=== PATIENT | male | born 1990 | race Caucasian/White ===

== ENCOUNTER 2022-11-29 13:47 | Emergency (ER) | payer OTHER ==
[~2022-11-29] VITALS: Ht 170.2 cm; Wt 88.5 kg
[2022-11-29] MEDS ORDERED: FLON27.5 NARES (16:11)
[2022-11-29] MEDS ORDERED: AMOX875T2 PO (16:11)
[2022-11-29 16:33] VITALS: BP 126/76
[2022-11-29 16:53] LABS: RSV AMPLIFICATION NEGATIVE (NEGATIVE)
== END 2022-11-29 16:34 | disposition home or self-care (01) ==
LOC: M ED 13:47
DX: H66.91 Otitis media, unspecified, right ear (principal); Z88.5 Allergy status to narcotic agent; Z88.6 Allergy status to analgesic agent

== ENCOUNTER 2022-12-17 22:26 | Emergency (ER) | payer OTHER ==
[~2022-12-17] VITALS: Ht 167.6 cm; Wt 87.0 kg
[~2022-12-17 22:26] MED LIST: AMOX875T2 PO; FLON27.5 NARES
[2022-12-17] MEDS ORDERED: LORA-930 (22:38)
[2022-12-18 00:33] LABS: LIPASE 32 U/L (12-53)
[2022-12-18 00:35] LABS: ALBUMIN 3.9 G/DL (3.2-5.2); ALKALINE PHOSPHATASE 136 U/L (46-116); ALT/SGPT 171 U/L (7.0-40); AST/SGOT 47 U/L (<34); BILIRUBIN,DIRECT 0.2 MG/DL (<0.4); BILIRUBIN,TOTAL 0.4 MG/DL (0.3-1.2); BLOOD UREA NITROGEN 13 MG/DL (9-23); CALCIUM LEVEL 8.6 MG/DL (8.5-10.1); CARBON DIOXIDE LEVEL 29 MMOL/L (20-31); CHLORIDE LEVEL 106 MMOL/L (98-107); CREATININE FOR GFR 1.03 MG/DL (0.70-1.30); GLOMERULAR FILTRATION RATE > 60.0 (>60); GLUCOSE, FASTING 92 MG/DL (60-100); POTASSIUM SERUM 4.3 MMOL/L (3.5-5.1); SODIUM LEVEL 139 MMOL/L (136-145); TOTAL PROTEIN 6.5 G/DL (5.7-8.2)
[2022-12-18 00:45] LABS: BASO % 0.3 % (0.0-1.0); EOS # 0.1 10^3/uL (0.0-0.5); EOS % 1.1 % (0.0-3.0); HEMATOCRIT 41.9 % (42.0-52.0); HEMOGLOBIN 14.2 g/dl (13.5-17.5); LYMPH # 2.1 10^3/uL (1.5-5.0); LYMPH % 31.9 % (24.0-44.0); MEAN CORPUSCULAR HEMOGLOBIN 29.5 pg (27.0-33.0); MEAN CORPUSCULAR HGB CONC 33.9 g/dl (32.0-36.5); MEAN CORPUSCULAR VOLUME 86.9 fl (80.0-96.0); MONO # 0.4 10^3/uL (0.0-0.8); MONO % 6.5 % (2.0-8.0); PLATELET COUNT, AUTOMATED 202 10^3/uL (150-450); RED BLOOD COUNT 4.82 10^6/uL (4.30-6.10); WHITE BLOOD COUNT 6.6 10^3/uL (4.0-10.0)
[2022-12-18] MEDS ORDERED: ISOVUE-370 76% 100ML VIAL As Ordered ONE (00:56)
[2022-12-18 03:04] VITALS: BP 104/55
== END 2022-12-18 03:21 | disposition home or self-care (01) ==
LOC: M ED 22:26
DX: R10.9 Unspecified abdominal pain (principal); R94.5 Abnormal results of liver function studies; Z88.5 Allergy status to narcotic agent; Z88.6 Allergy status to analgesic agent
CPT/HCPCS: 36415; 74177; 80048; 80076; 83690; 85025; 99284; Q9967

== ENCOUNTER 2023-01-20 17:05 | Emergency (ER) | payer OTHER ==
[~2023-01-20] VITALS: Ht 170.2 cm; Wt 84.2 kg
[2023-01-20 17:05] VITALS: BP 121/64
[~2023-01-20 17:05] MED LIST changes: +LORA-930
== END 2023-01-20 22:23 | disposition left against medical advice (07) ==
LOC: M ED 17:05
DX: Z53.21 Procedure and treatment not carried out due to patient leaving prior to being seen by health care provider (principal)

== ENCOUNTER 2023-01-30 19:19 | Emergency (ER) | payer OTHER ==
[~2023-01-30] VITALS: Ht 170.2 cm; Wt 67.0 kg
[2023-01-30 19:19] VITALS: BP 126/67
== END 2023-01-30 23:23 | disposition left against medical advice (07) ==
LOC: M ED 19:19
DX: R10.9 Unspecified abdominal pain (principal); R51.9 Headache, unspecified; Z53.21 Procedure and treatment not carried out due to patient leaving prior to being seen by health care provider

== ENCOUNTER → 2023-05-15 | Outpatient (REF) | payer OTHER ==
[2023-05-15 12:56] LABS: SEMEN APPEARANCE OPAQUE (OPAQUE); SEMEN VISCOSITY LIQUID (LIQUID); SEMEN VOLUME 2.5 ml (2.0-5.0); SEMEN pH 8.5 (7.0-8.0)
[2023-05-15 12:57] LABS: SPERM CONCENTRATION 64.5 M/ml (>=15.0); WBC CONCENTRATION <=1 M/ml (<=1 M/ml)
== END ==
LOC: M LAB REF 12:33
PROVIDERS: ATTEND Obstetrics & Gynecology
DX: N46.8 Other male infertility (principal)

== ENCOUNTER 2023-10-03 20:42 | Emergency (ER) | payer OTHER ==
[~2023-10-03] VITALS: Ht 167.6 cm; Wt 81.9 kg
[2023-10-03 20:43] VITALS: BP 133/70; TEMP 98.5; O2SAT 93
[2023-10-03] MEDS ORDERED: OSEL75CA PO (22:51)
[2023-10-03] MEDS ORDERED: ONDA4TAB6 PO (22:51)
== END 2023-10-04 03:20 | disposition home or self-care (01) ==
LOC: M ED 20:42
DX: J10.1 Influenza due to other identified influenza virus with other respiratory manifestations (principal); B97.89 Other viral agents as the cause of diseases classified elsewhere

== ENCOUNTER 2023-12-14 02:46 | Emergency (ER) | payer OTHER ==
[~2023-12-14] VITALS: Ht 167.6 cm; Wt 83.9 kg
[~2023-12-14 02:46] MED LIST changes: +ONDA4TAB6 PO; +OSEL75CA PO
[2023-12-14] MEDS ORDERED: CEPH500C PO (07:20)
[2023-12-14 07:29] VITALS: BP 146/60; TEMP 97.4; O2SAT 100
== END 2023-12-14 07:32 | disposition home or self-care (01) ==
LOC: M ED 02:46
DX: B07.0 Plantar wart (principal); Z88.5 Allergy status to narcotic agent

== ENCOUNTER 2024-07-02 15:31 | Emergency (ER) | payer OTHER ==
[~2024-07-02] VITALS: Ht 167.6 cm; Wt 82.4 kg
[~2024-07-02 15:31] MED LIST changes: +CEPH500C PO; +ONDA-282 PO; -ONDA4TAB6 PO
[2024-07-02 15:37] VITALS: BP 138/73; TEMP 97.2; O2SAT 99
== END 2024-07-02 16:39 | disposition left against medical advice (07) ==
LOC: M ED 15:31
DX: Z53.21 Procedure and treatment not carried out due to patient leaving prior to being seen by health care provider (principal)

== ENCOUNTER → 2024-11-03 | Outpatient (REF) | payer OTHER ==
[2024-11-03 09:05] LABS: SEMEN APPEARANCE OPAQUE (OPAQUE); SEMEN VISCOSITY LIQUID (LIQUID); SEMEN VOLUME 2.5 ml (2.0-5.0); SEMEN pH 8.5 (7.0-8.0); SPERM CONCENTRATION 102.7 M/ml (>=15.0); TOTAL PROGRESSIVE SPERM 120.9 M/Ejac.; WBC CONCENTRATION <=1 M/ml (<=1 M/ml)
== END ==
LOC: M LAB REF 08:52
PROVIDERS: ATTEND Physician Assistant
DX: N46.8 Other male infertility (principal)

== ENCOUNTER 2025-09-06 13:37 | Emergency (ER) | payer OTHER ==
[~2025-09-06] VITALS: Ht 170.2 cm; Wt 85.9 kg
[2025-09-06 15:55] VITALS: TEMP 97.8
[2025-09-06] MEDS: NS (Normal Saline) 0.9% 1,000 ML IV ONE (18:41)
[2025-09-06 18:59] LABS: BASO # 0.0 10^3/uL (0.0-0.2); BASO % 0.3 % (0.0-1.0); EOS # 0.0 10^3/uL (0.0-0.5); EOS % 0.7 % (0.0-3.0); LYMPH # 2.1 10^3/uL (1.5-5.0); LYMPH % 34.6 % (24.0-44.0); MONO # 0.3 10^3/uL (0.0-0.8); MONO % 5.3 % (2.0-8.0); NEUTROPHILS # 3.6 10^3/uL (1.5-8.5); NEUTROPHILS % 58.9 % (36.0-66.0); PLATELET COUNT, AUTOMATED 257 10^3/uL (150-450)
[2025-09-06 19:26] LABS: ALT/SGPT 59 U/L (7.0-40); AST/SGOT 28 U/L (<34); CALCIUM LEVEL 9.4 MG/DL (8.5-10.1); CARBON DIOXIDE LEVEL 28 MMOL/L (20-31); CHLORIDE LEVEL 105 MMOL/L (98-107); CK-MB VALUE MASS < 1.0 NG/ML (<3.6); CPK CREATINE PHOSPHOKINASE 105 U/L (46-171); CREATININE FOR GFR 0.96 MG/DL (0.70-1.30); GLOMERULAR FILTRATION RATE > 90.0 (>60); POTASSIUM SERUM 4.0 MMOL/L (3.5-5.1); SODIUM LEVEL 141 MMOL/L (136-145)
[2025-09-06 19:45] VITALS: O2SAT 96
[2025-09-06 19:49] VITALS: BP 118/69
== END 2025-09-06 19:58 | disposition home or self-care (01) ==
LOC: M ED 13:37
DX: R55 Syncope and collapse (principal); K58.9 Irritable bowel syndrome, unspecified; Z88.5 Allergy status to narcotic agent